=== PATIENT | male | born 1985 | race African-American/Black ===

== ENCOUNTER 2016-10-04 02:50 | Inpatient (IN) | payer MEDICAID ==
[~2016-10-04] VITALS: Ht 170.2 cm; Wt 86.0 kg
[2016-10-04] MEDS ORDERED: RISPC25 IM (03:45)
[2016-10-04] MEDS ORDERED: LORazepam 2 MG/ML VIAL IM ONE (04:00)
[2016-10-04] MEDS ORDERED: DiphenhydrAMINE HCL 50 MG/ML VIAL IM ONE (04:00)
[2016-10-04] MEDS ORDERED: HALOPERIDOL LACTATE 5 MG/ML VIAL IM ONE (04:00)
[2016-10-04] MEDS ORDERED: ZOLPIDEM TARTRATE 10 MG TABLET PO PRN (04:15)
[2016-10-04 09:36] LABS: EOSINOPHILS % (AUTO) 7.87 % (1.0-6.0); HEMATOCRIT 42.2 % (41-53); HEMOGLOBIN 13.8 g/dL (13.5-17.5); LYMPHOCYTES % (AUTO) 22.3 % (22.0-44.0); MEAN CORPUSCULAR HEMOGLOBIN 30.7 pg (26.0-34.0); MEAN CORPUSCULAR HGB CONC 32.7 G/dL (31.0-37.0); MEAN CORPUSCULAR VOLUME 94 fL (80-100); MONOCYTES # (AUTO) 0.6 K/uL (0.1-1.0); MONOCYTES % (AUTO) 7.1 % (2.0-9.0); NEUTROPHILS # (AUTO) 5.6 K/uL (1.8-7.7); NEUTROPHILS % (AUTO) 62.8 % (40.0-70.0); PLATELET COUNT (AUTO) 301 K/uL (150-450); RED BLOOD CELL COUNT(AUTO) 4.49 MIL/uL (4.50-5.90); RED CELL DISTRIBUTION WIDTH 13.9 % (11.5-14.5); WHITE BLOOD COUNT (AUTO) 8.9 K/uL (4.5-11.0)
[2016-10-04 09:40] LABS: ANION GAP 10 mmol/L (8-16); CALCIUM, TOTAL 8.9 mg/dL (8.8-10.5); CARBON DIOXIDE 26 mmol/L (22-29); CHLORIDE 105 mmol/L (98-107); CREATININE 1.09 mg/dL (0.60-1.30); GLOMERULAR FILTR. RATE CALC > 60 mL/min (>60); POTASSIUM 3.9 mmol/L (3.5-5.1); SODIUM SERUM 141 mmol/L (136-145); UREA NITROGEN, BLOOD 9 mg/dL (7-18)
[2016-10-04 09:47] LABS: ALANINE AMINOTRANSFERASE 28 U/L (12-78); ALBUMIN 3.8 g/dL (3.4-5.0); ASPARTATE AMINOTRANSFERASE 36 U/L (15-37); BILIRUBIN,TOTAL 0.8 mg/dL (0.1-1.0); TOTAL PROTEIN, SERUM 7.5 g/dL (6.4-8.2)
[2016-10-04 16:00] VITALS: BP 114/69
[2016-10-05 04:21] VITALS: BP 119/67
[2016-10-05] MEDS: HALOPERIDOL 5 MG TABLET PO PRN ×3 (04:36→17:04)
[2016-10-05] MEDS: LORazepam 2 MG TABLET PO PRN ×3 (04:36→17:04)
[2016-10-05] MEDS ORDERED: IBUPROFEN 400 MG TABLET PO PRN (05:45)
[2016-10-05 08:09] VITALS: BP 132/80
[2016-10-05 16:00] VITALS: BP 116/65
[2016-10-06 07:03] VITALS: BP 112/66
[2016-10-06 08:10] VITALS: BP 126/69
[2016-10-06] MEDS: LORazepam 2 MG TABLET PO PRN (08:46)
[2016-10-06] MEDS: HALOPERIDOL 5 MG TABLET PO PRN (08:46)
[2016-10-06] MEDS: RisperiDONE 3 MG TABLET PO SCH ×2 (14:06→16:38)
[2016-10-06 16:00] VITALS: BP 120/66
[2016-10-07 04:41] VITALS: BP 118/79
[2016-10-07] MEDS: RisperiDONE 3 MG TABLET PO SCH ×2 (08:17→16:18)
[2016-10-07 08:32] VITALS: BP 120/70
[2016-10-07 16:00] VITALS: BP 136/74
[2016-10-07] MEDS ORDERED: RISP3 PO (16:06)
== END 2016-10-07 17:51 | disposition home or self-care (01) | DRG 750 ==
LOC: EDUNIT# 02:50 → EMS 02:52 → B3A 10:49 → EMS 12:28 → B3A 23:52
PROVIDERS: ADMIT Psychiatry & Neurology Child & Adolescent Psychiatry; ATTEND Psychiatry & Neurology Child & Adolescent Psychiatry
DX: F20.0 Paranoid schizophrenia (principal); R45.851 Suicidal ideations; F17.210 Nicotine dependence, cigarettes, uncomplicated; Z79.899 Other long term (current) drug therapy
CPT/HCPCS: 96372; 99285; G0480; J1200; J1630; J2060

== ENCOUNTER 2024-06-02 19:17 | Emergency (ER) | payer MEDICAID ==
[~2024-06-02] VITALS: Ht 172.7 cm; Wt 80.5 kg
[~2024-06-02 19:17] MED LIST: RISP3TAB35 PO; RISPC25 IM
[2024-06-02 19:29] VITALS: BP 156/89; PULSE 114; RESP 18; TEMP 98.4; O2SAT 94
[2024-06-02 20:20] LABS: APPEARANCE,URINE CLEAR (CLEAR); BILIRUBIN,URINE NEGATIVE (NEGATIVE); COLOR,URINE LIGHT YELLOW (YELLOW); GLUCOSE, URINE (UA) NEGATIVE (NEGATIVE); KETONES,URINE NEGATIVE (NEGATIVE); LEUKOCYTE ESTERASE ,URINE LARGE (NEGATIVE); NITRATE,URINE NEGATIVE (NEGATIVE); OCCULT BLOOD,URINE MODERATE (NEGATIVE); PH,URINE 6.5 (5.0-8.0); PROTEIN,URINE 300-600,SEE CONFIRM mg/dL (NEGATIVE); SPECIFIC GRAVITIY, URINE 1.009 (1.003-1.030); UROBILINOGEN,URINE <=1.0 mg/dL (<=1.0)
[2024-06-02 20:43] LABS: SULFOSALICYLIC ACID,URINE 2+ (Negative)
[2024-06-02 20:44] LABS: BACTERIA,URINE Moderate /HPF (None Seen); SQUAMOUS EPITHELIAL CELL,UR None Seen /LPF (None Seen)
[2024-06-02 21:07] LABS: HEMATOCRIT 28.1 % (41-53); LYMPHOCYTES # (AUTO) 0.7 K/uL (1.0-4.8); LYMPHOCYTES % (AUTO) 9.2 % (22.0-44.0); MEAN CORPUSCULAR HEMOGLOBIN 29.5 pg (26.0-34.0); MEAN CORPUSCULAR VOLUME 92 fL (80-100); MONOCYTES # (AUTO) 0.5 K/uL (0.1-1.0); MONOCYTES % (AUTO) 6.9 % (2.0-9.0); NEUTROPHILS # (AUTO) 6.2 K/uL (1.8-7.7); NEUTROPHILS % (AUTO) 78.9 % (40.0-70.0); PLATELET COUNT (AUTO) 434 K/uL (150-450); RED BLOOD CELL COUNT(AUTO) 3.05 MIL/uL (4.50-5.90); RED CELL DISTRIBUTION WIDTH 15.7 % (11.5-14.5); WHITE BLOOD COUNT (AUTO) 7.8 K/uL (4.5-11.0)
[2024-06-02 21:21] LABS: CALCIUM, TOTAL 8.4 mg/dL (8.8-10.5); CREATININE 8.56 mg/dL (0.60-1.30)
[2024-06-02] MEDS ORDERED: CEPH-558 PO (22:50)
[2024-06-02] MEDS: CEPHALEXIN MONOHYDRATE 500 MG CAPSULE PO ONE (22:54)
== END 2024-06-03 00:11 | disposition home or self-care (01) ==
LOC: EMS 19:17
DX: N39.0 Urinary tract infection, site not specified (principal); N18.9 Chronic kidney disease, unspecified; F20.9 Schizophrenia, unspecified; F17.210 Nicotine dependence, cigarettes, uncomplicated; F15.90 Other stimulant use, unspecified, uncomplicated; Z79.899 Other long term (current) drug therapy
CPT/HCPCS: 80048; 81001; 81002; 85025; 87086; 99283